=== PATIENT | female | born 1995 | race African-American/Black ===

== ENCOUNTER 2016-04-13 15:08 | Emergency (ER) | payer OTHER, MEDICAID ==
[~2016-04-13] VITALS: Ht 154.9 cm; Wt 60.0 kg
[2016-04-13 15:10] VITALS: BP 127/64; PULSE 74; RESP 15; TEMP 98.1; O2SAT 99
--- NOTE | 2016-04-13 17:06 | PD ---
HPI Chief Complaint: Cold / Flu Symptoms Time Seen by Provider: 17:05 Travel History International Travel<30 days: No Contact w/Intl Traveler<30days: No Traveled to known affect area: No History of Present Illness HPI 20-year-old female presents to ED for evaluation of 10 day history of these, sinus congestion, clear rhinorrhea, sore throat, nonproductive cough. Patient states first symptom was malaise and sore throat. She endorses subjective fevers, has not measured a temperature at home. She endorses sick contacts, states that her roommate has had similar symptoms. She denies this years flu vaccine. Denies risk of , endorses daily oral contraception. She denies chronic health problems, takes no daily medications. NKDA. PFSH Past Medical History ?: Unknown LMP: FEB 10 2017 Social History Tobacco Use: No Allergies-Medications (Allergen,Severity, Reaction): Coded Allergies: No Known Allergies (Unverified , 04/13/16) Reported Meds & Prescriptions Reported Meds & Active Scripts Active Fluticasone Nasal [place] 50 Mcg/Act Naspr 100 Mcg EACH NARE DAILY 15 Days 50 mcg/spray Tessalon Perles (Benzonatate) 100 Mg Cap 100 Mg PO TID PRN Review of Systems Except as stated in HPI: all other systems reviewed are Neg Physical Exam Narrative GENERAL: Well-nourished, well-developed black female in no acute distress. SKIN: Warm and dry. HEAD: Normocephalic. Atraumatic. EYES: No scleral icterus. No injection or drainage. PERRLA. EOMI. ENT: Pearly ordonez tympanic membranes bilaterally. Nasal mucosa is moist. Oropharynx with mild posterior erythema. No edema or exudates. Airway patent. Uvula midline. NECK: Supple, trachea midline. No JVD or lymphadenopathy. CARDIOVASCULAR: Regular rate and rhythm without murmurs, gallops, or rubs. 2+ DP and radial pulses bilaterally. RESPIRATORY: Breath sounds clear and equal bilaterally. No accessory muscle use. GASTROINTESTINAL: Abdomen soft, non-tender, nondistended. + Bowel sounds MUSCULOSKELETAL: No cyanosis, or edema. The patient is observed to walk with a normal gait. BACK: Nontender without obvious deformity. No CVA tenderness. Data Data Last Documented VS Vital Signs Date Time Temp Pulse Resp B/P Pulse Ox O2 Delivery O2 Flow Rate FiO2 04/13/16 19:05 98.9 88 16 121/63 98 Orders Electrocardiogram (04/13/16 ) Group A Rapid Strep Screen (04/13/16 17:27) Influenzae A/B Antigen (04/13/16 17:27) Chest, Single Ap (04/13/16 ) Strep Culture (Group A) (04/13/16 18:00) MDM Medical Decision Making Medical Screen Exam Complete: Yes Emergency Medical Condition: Yes Interpretation(s) EKG rate 65, sinus rhythm. NC interval 135 ms, QRS 83, QTC 372. Normal axis. No ischemic changes. Reviewed by Dr. Hernandez. Differential Diagnosis Viral syndrome versus influenza versus group A strep versus sinusitis versus other Narrative Course 20-year-old female presents to ED for evaluation of 10 day history of these, sinus congestion, clear rhinorrhea, sore throat, nonproductive cough. Patient states first symptom was malaise and sore throat. She endorses subjective fevers, has not measured a temperature at home. She endorses sick contacts, states that her roommate has had similar symptoms. She denies this years flu vaccine. Vitals reviewed. Physical exam reveals a nontoxic appearing black female in no acute distress. Mild posterior oropharyngeal area edema. Physical exam otherwise unremarkable. Rapid strep swab: Negative EKG: As above CXR: No acute disease per radiology read. Influenza A: Positive The patient is positive for influenza A. However does have been written for approximately 10 days. Tamiflu is not indicated. We'll treat symptomatically. Patient was prescribed Tessalon Perles 12 for persistent cough, fluticasone nasal spray 100 mg each nostril daily. We discussed reasons to return to the ED. Patient is instructed to take medication as prescribed, follow up with primary care provider. She indicated understanding of instructions. She is stable and discharged home. Diagnosis Primary Impression: Influenza A Additional Impression: Cough Referrals: Primary Care Physician Patient Instructions: General Instructions, Influenza (ED) Additional Instructions: Rest, hydrate. You have influenza A.Unable to be prescribed Tamiflu because symptoms have been present for greater than 48 hours. Ibuprofen as described on the label, as needed for body aches and fever. Tessalon Perles as needed for cough. Fluticasone nasal spray 2 puffs in each nostril daily to reduce nasal inflammation. This can also help to reduce cough by reducing nasal secretions and postnasal drip. Follow-up the primary care provider in a week. Return to the ED for any urgent or emergent medical condition. Med/Other Pt SpecificInfo: Prescription(s) given Scripts Fluticasone Nasal [place] 50 Mcg/Act [id number] Mcg EACH NARE DAILY 15 Days Ref 0 50 mcg/spray Prov:Nicholas Lerner MD 04/13/16 Benzonatate (Tessalon Perles)100 Mg [id number] Mg PO TID PRN (COUGH) #12 CAP Ref 0 Prov:Nicholas Lerner MD 04/13/16 Disposition: 01 DISCHARGE HOME Condition: Stable Sameera Alvarenga Apr 13, 2016 17:06
--- NOTE | 2016-04-13 18:44 | RADRPT ---
EXAM DATE/TIME: 04/13/2016 17:51 [facility] COMPARISON: No previous studies available for comparison. INDICATIONS : Cough, chest congestion for 3 days MEDICAL HISTORY : None. SURGICAL HISTORY : None. ENCOUNTER: Initial ACUITY: 3 days PAIN SCORE: 0/10 LOCATION: Bilateral chest FINDINGS: A single view of the chest demonstrates the lungs to be symmetrically aerated without evidence of mas s, infiltrate or effusion. The cardiomediastinal contours are unremarkable. Osseous structures are intact. CONCLUSION: No acute disease. Jairon Victor MD on April 13, 2016 at 18:42 Board Certified Radiologist. This report was verified electronically.
[2016-04-13] MEDS ORDERED: BENZ100 PO (18:58)
[2016-04-13] MEDS ORDERED: FLUT50SP EACH NARE (18:58)
[2016-04-13 19:05] VITALS: BP 121/63; TEMP 98.9
--- NOTE | 2016-04-14 16:06 | EKG ---
Date Performed: 04/13/2016 Time Performed: 16:06:20 PTAGE: 20 years EKG: Sinus rhythm WITH SINUS ARRHYTHMIA NORMAL ECG NO PREVIOUS TRACING DOCTOR: Bashir Miller Interpretating Date/Time 04/14/2016 16:05:48
== END 2016-04-13 19:09 | disposition home or self-care (01) ==
LOC: NEPB 15:08
DX: J09.X9 Influenza due to identified novel influenza A virus with other manifestations (principal)
CPT/HCPCS: 71010; 87081; 87804; 87880; 93005

== ENCOUNTER 2016-05-20 23:04 | Emergency (ER) | payer MEDICAID, OTHER ==
[~2016-05-20] VITALS: Ht 167.6 cm; Wt 60.0 kg
[~2016-05-20 23:04] MED LIST: BENZ100 PO; FLUT50SP EACH NARE
--- NOTE | 2016-05-20 23:24 | PD ---
HPI Chief Complaint: psychiatric evaluation Time Seen by Provider: 23:21 Travel History International Travel<30 days: No Contact w/Intl Traveler<30days: No History of Present Illness HPI Patient comes under Ramirez act by police for allegedly sending e-mail to her employer 3 days ago stating she was contemplating suicide. Patient states she has had suicidal thoughts ever since she was 9 years old. Patient reports she has tried hurting herself in the past most recently within the last year patient states that she tried to hang herself from a shower curtain edson however her boyfriend stopped her. Patient states that earlier this week she was vomiting, but has since resolved. Patient denies any other medical concerns at this time. Denies any chest pain, shortness of breath, abdominal pain, fevers, or chest pain. PFSH Past Medical History Medical History: Denies Significant Hx Social History Tobacco Use: No Allergies-Medications (Allergen,Severity, Reaction): Coded Allergies: No Known Allergies (Unverified , 05/20/16) Reported Meds & Prescriptions Reported Meds & Active Scripts Active Fluticasone Nasal [place] 50 Mcg/Act Naspr 100 Mcg EACH NARE DAILY 15 Days 50 mcg/spray Tessalon Perles (Benzonatate) 100 Mg Cap 100 Mg PO TID PRN Review of Systems Except as stated in HPI: all other systems reviewed are Neg Physical Exam Narrative GENERAL: Well-developed, well nourished, in no acute distress, and non-ill appearing. SKIN: Warm and dry. HEAD: Atraumatic. Normocephalic. EYES: Pupils equal and round. EOMI. No scleral icterus. No injection or drainage. ENT: No nasal bleeding or discharge. Mucous membranes pink and moist. NECK: Trachea midline. Supple. No nuclear rigidity. CARDIOVASCULAR: Regular rate and rhythm. No murmur appreciated. RESPIRATORY: No accessory muscle use. No respiratory distress. Clear to auscultation. Breath sounds equal bilaterally. MUSCULOSKELETAL: No obvious deformities. No clubbing. No cyanosis. No edema. Full range of motion. NEUROLOGICAL: Awake and alert. No obvious cranial nerve deficits. Motor grossly within normal limits. Normal speech. PSYCHIATRIC: Appropriate mood and affect; insight and judgment normal. Data Data Last Documented VS Vital Signs Date Time Temp Pulse Resp B/P Pulse Ox O2 Delivery O2 Flow Rate FiO2 05/20/16 23:44 91 05/20/16 23:43 20 118/63 100 05/20/16 23:37 98.8 Orders Complete Blood Count With Diff (05/20/16 23:08) Comprehensive Metabolic Panel (05/20/16 23:08) Ed Urine Pregnancytest Poc (05/20/16 23:08) Psych Screen (05/20/16 23:08) Drug Screen, Random Urine (05/20/16 23:08) Alcohol (Ethanol) (05/20/16 23:08) Salicylates (Aspirin) (05/20/16 23:08) Tylenol (Acetaminophen) (05/20/16 23:08) Labs Laboratory Tests Test 05/20/16 05/20/16 23:15 23:30 White Blood Count 9.2 TH/MM3 Red Blood Count 3.83 MIL/MM3 Hemoglobin 12.1 GM/DL Hematocrit 34.9 % Mean Corpuscular Volume 91.2 FL Mean Corpuscular Hemoglobin 31.5 PG Mean Corpuscular Hemoglobin 34.6 % Concent Red Cell Distribution Width 12.5 % Platelet Count 242 TH/MM3 Mean Platelet Volume 9.6 FL Neutrophils (%) (Auto) 67.2 % Lymphocytes (%) (Auto) 23.1 % Monocytes (%) (Auto) 8.7 % Eosinophils (%) (Auto) 0.6 % Basophils (%) (Auto) 0.4 % Neutrophils # (Auto) 6.2 TH/MM3 Lymphocytes # (Auto) 2.1 TH/MM3 Monocytes # (Auto) 0.8 TH/MM3 Eosinophils # (Auto) 0.1 TH/MM3 Basophils # (Auto) 0.0 TH/MM3 CBC Comment DIFF FINAL Differential Comment Sodium Level 140 MEQ/L Potassium Level 4.2 MEQ/L Chloride Level 104 MEQ/L Carbon Dioxide Level 26.7 MEQ/L Anion Gap 9 MEQ/L Blood Urea Nitrogen 12 MG/DL Creatinine 0.91 MG/DL Estimat Glomerular Filtration 96 ML/MIN Rate Random Glucose 96 MG/DL Calcium Level 8.8 MG/DL Total Bilirubin LESS THAN 0.1 MG/DL Aspartate Amino Transf 14 U/L (AST/SGOT) Alanine Aminotransferase 17 U/L (ALT/SGPT) Alkaline Phosphatase 73 U/L Total Protein 7.3 GM/DL Albumin 3.5 GM/DL Salicylates Level LESS THAN 1.7 MG/DL Acetaminophen Level LESS THAN 2.0 MCG/ML Ethyl Alcohol Level LESS THAN 3 MG/DL Urine Opiates Screen NEG Urine Barbiturates Screen NEG Urine Amphetamines Screen NEG Urine Benzodiazepines Screen NEG Urine Cocaine Screen NEG Urine Cannabinoids Screen POS MDM Medical Decision Making Medical Screen Exam Complete: Yes Emergency Medical Condition: Yes Differential Diagnosis Homicidal, suicidal, electrolyte abnormality, depression, other Narrative Course Patient was seen and examined. Labs were obtained and reviewed. Patient medically cleared for further treatment and evaluation by psych. Final disposition per psych. Diagnosis Primary Impression: Suicidal thoughts Condition: Stable Jayesh Venegas May 20, 2016 23:24
[2016-05-20 23:37] VITALS: BP 118/63; PULSE 91; RESP 20; TEMP 98.8; O2SAT 100
[2016-05-20 23:38] LABS: AUTOMATED NEUTROPHIL # 6.2 TH/MM3 (1.8-7.7); BASOPHIL % 0.4 % (0.0-2.0); EOSINOPHIL # 0.1 TH/MM3 (0-0.4); EOSINOPHIL % 0.6 % (0.0-4.0); HEMATOCRIT 34.9 % (35.0-46.0); HEMO FLAGS DIFF FINAL; LYMPH % 23.1 % (9.0-44.0); LYMPHOCYTE # 2.1 TH/MM3 (1.0-4.8); MEAN CELL VOLUME 91.2 FL (80.0-100.0); MEAN CORPUSCULAR HEMOGLOBIN 31.5 PG (27.0-34.0); MEAN CORPUSCULAR HGB CONC 34.6 % (32.0-36.0); MONO % 8.7 % (0.0-8.0); NEUT % 67.2 % (16.0-70.0); PLATELET COUNT 242 TH/MM3 (150-450); RED BLOOD COUNT 3.83 MIL/MM3 (4.00-5.30); RED CELL DISTRIBUTION WIDTH 12.5 % (11.6-17.2); WHITE BLOOD COUNT 9.2 TH/MM3 (4.0-11.0)
[2016-05-20 23:43] VITALS: BP 118/63; PULSE 91; RESP 20; O2SAT 100
[2016-05-20 23:48] LABS: AMPHETAMINE, URINE NEG (NEG); BARBITURATES, URINE NEG (NEG); COCAINE, URINE NEG (NEG)
[2016-05-20 23:52] LABS: ANION GAP 9 MEQ/L (5-15)
[2016-05-20 23:55] LABS: ALKALINE PHOSPHATASE 73 U/L (45-117); ALT (GPT) 17 U/L (9-42); AST (GOT) 14 U/L (16-38); BICARBONATE 26.7 MEQ/L (21.0-32.0); BLOOD UREA NITROGEN 12 MG/DL (7-18); CHLORIDE 104 MEQ/L (98-107); GLOMERULAR FILTRATION RATE 96 ML/MIN (>89); POTASSIUM 4.2 MEQ/L (3.5-5.1); SODIUM (NA) 140 MEQ/L (136-145); TOTAL BILIRUBIN ADULT LESS THAN 0.1 MG/DL (0.2-1.0)
[2016-05-20 23:56] LABS: ACETAMINOPHEN LESS THAN 2.0 MCG/ML (10.0-30.0)
[2016-05-21] MEDS ORDERED: NORE1TAB80 PO (02:00)
[2016-05-21 02:32] VITALS: BP 96/53; PULSE 70; RESP 18; TEMP 97.5; O2SAT 99
[2016-05-21 06:45] VITALS: BP 100/55; PULSE 67; RESP 18; TEMP 97.4; O2SAT 100
--- NOTE | 2016-05-21 11:20 | PD ---
History of Present Illness Chief Complaint: Psychiatric Symptoms Time Seen by Provider: 11:00 Travel History International Travel<30 Days: No Contact w/Intl Traveler<30days: No Known affected area: No Legal Status Legal Status: Ramirez Act Ramirez Act Signed By: Winnie Henry History of Present Illness: History of Present Illness HPI Patient is a 20 year old female with no previous psychiatric history who comes under Ramirez act by police for allegedly sending e-mail to her employer 3 days ago stating she was contemplating suicide. As per the report the patient sent the message at 10:30 in the morning and then " forgot about it". She reports that she was surprised when the police picked her up at 11:00 pm. and states " I was having a perfectly fine day". EMR is reviewed. There are no previous contacts with [facility] psychiatry department. Current toxicology is positive for cannabinoids. Patient is seen in J pod. She is alert and oriented. She has presented no behavioral concerns. She presents with childlike behaviors. Her speech is very soft. It is clear and logical. There is no evidence of any psychosis and no greg. Mood is mildly depressed. No vegetative symptoms. She reports that she has experienced some losses recently which have contributed to her feeling sad. At this time she does not endorse any suicidal ideation, intent or plan. PFSH Past Medical History Medical History: Denies Significant Hx Tetanus Vaccination: < 5 Years Influenza Vaccination: No ?: Not Psychiatric History Psychiatric History Hx Psychiatric Treatment: DENIED FORMAL DX Alleges that at age 9 she attempted sucide after her parents . History of Inpatient Treatment: No Guns or firearms in home: No Social History Single fe male . Lives with roommates. Attends [employer] and is studying political science. Hx Alcohol Use: No Hx Tobacco Use: No Hx Substance Use: Yes (DENIED) Substance Use Type: Marijuana Hx of Substance Use Treatment: No Family Psychiatric History None reported Allergies-Medications (Allergen,Severity, Reaction): Coded Allergies: No Known Allergies (Unverified , 05/20/16) Reported Meds & Prescriptions Reported Meds & Active Scripts Active Reported Blisovi Fe 1.530 (Norethindrone-Ethinyl Estradiol-Fe) 1.5-30 Mg-Mcg Tab 1 Tab PO DAILY Review of Systems Except as stated in HPI: all other systems reviewed are Neg Exam Alert: Yes [place]: Person (ox4) Mood: Calm Affect: Euthymic Speech: Clear, Logical Eye Contact: Normal Memory Intact: Comment (no impairmetn) Hallucinations: Other (neagtive) Delusions: No Suicidal: Ideation (deneis any) Homicidal: Ideation (deneis any) Insight/Judgement Fair. Not impaired MDM Medical Decision Making Medical Record Reviewed: Yes Assessment/Plan 20 year old female under a BA for having sent a letter to her employer in which she reported that she had experienced suicidal ideation 2 days prior to sending the letter. She made no attempt at harming herself. At this time she does not present any iminent risk to self or others. She is future oriented. She is provided support. She will seek counseling at her college counseling services. Orders Complete Blood Count With Diff (05/20/16 23:08) Comprehensive Metabolic Panel (05/20/16 23:08) Ed Urine Pregnancytest Poc (05/20/16 23:08) Psych Screen (05/20/16 23:08) Drug Screen, Random Urine (05/20/16 23:08) Alcohol (Ethanol) (05/20/16 23:08) Salicylates (Aspirin) (05/20/16 23:08) Tylenol (Acetaminophen) (05/20/16 23:08) Diet Regular Basic (05/21/16 Breakfast) Results Vital Signs Date Time Temp Pulse Resp B/P Pulse Ox O2 Delivery O2 Flow Rate FiO2 05/21/16 06:45 97.4 67 18 100/55 100 Room Air 05/21/16 02:32 97.5 70 18 96/53 99 Room Air 05/20/16 23:44 91 05/20/16 23:43 91 20 118/63 100 05/20/16 23:37 98.8 91 20 118/63 100 Laboratory Tests Test 05/20/16 05/20/16 23:15 23:30 White Blood Count 9.2 Red Blood Count 3.83 Hemoglobin 12.1 Hematocrit 34.9 Mean Corpuscular Volume 91.2 Mean Corpuscular Hemoglobin 31.5 Mean Corpuscular Hemoglobin 34.6 Concent Red Cell Distribution Width 12.5 Platelet Count 242 Mean Platelet Volume 9.6 Neutrophils (%) (Auto) 67.2 Lymphocytes (%) (Auto) 23.1 Monocytes (%) (Auto) 8.7 Eosinophils (%) (Auto) 0.6 Basophils (%) (Auto) 0.4 Neutrophils # (Auto) 6.2 Lymphocytes # (Auto) 2.1 Monocytes # (Auto) 0.8 Eosinophils # (Auto) 0.1 Basophils # (Auto) 0.0 CBC Comment DIFF FINAL Differential Comment Sodium Level 140 Potassium Level 4.2 Chloride Level 104 Carbon Dioxide Level 26.7 Anion Gap 9 Blood Urea Nitrogen 12 Creatinine 0.91 Estimat Glomerular Filtration 96 Rate Random Glucose 96 Calcium Level 8.8 Total Bilirubin LESS THAN 0.1 Aspartate Amino Transf 14 (AST/SGOT) Alanine Aminotransferase 17 (ALT/SGPT) Alkaline Phosphatase 73 Total Protein 7.3 Albumin 3.5 Salicylates Level LESS THAN 1.7 Acetaminophen Level LESS THAN 2.0 Ethyl Alcohol Level LESS THAN 3 Urine Opiates Screen NEG Urine Barbiturates Screen NEG Urine Amphetamines Screen NEG Urine Benzodiazepines Screen NEG Urine Cocaine Screen NEG Urine Cannabinoids Screen POS Diagnosis Primary Impression: Adjustment disorder Ruled Out: Suicidal thoughts Psychiatrically Cleared: Yes Med/ Other Pt Specific Info: No Meds Exist/No RX given Disposition: 01 DISCHARGE HOME Condition: Stable Problem Qualifiers Primary Impression: Adjustment disorder Qualified Code: F43.21 - Adjustment disorder with depressed mood Anita Johnston May 21, 2016 11:19
[2016-05-21 11:41] VITALS: BP 108/58; PULSE 76; RESP 16; O2SAT 97
== END 2016-05-21 13:15 | disposition home or self-care (01) ==
LOC: NEDAMB 23:04 → NEPJ 05-21 13:15
DX: R45.851 Suicidal ideations (principal); F43.21 Adjustment disorder with depressed mood; F12.90 Cannabis use, unspecified, uncomplicated
CPT/HCPCS: 80053; 80307; 84703; 85025; 99284

== ENCOUNTER 2017-04-12 15:32 | Emergency (ER) | payer MEDICAID ==
[~2017-04-12] VITALS: Ht 152.4 cm; Wt 60.0 kg
[~2017-04-12 15:32] MED LIST changes: -BENZ100 PO; -FLUT50SP EACH NARE; +NORE1TAB80 PO
[2017-04-12 15:35] VITALS: BP 120/65; PULSE 85; RESP 14; TEMP 98.5; O2SAT 100
--- NOTE | 2017-04-12 16:14 | RADRPT ---
EXAM DATE/TIME: 04/12/2017 15:58 [facility] COMPARISON: No previous studies available for comparison. INDICATIONS : Patients states she stepped on something today, unknown object, that went through her shoe near later al side of 5th MTPJ. Patient states there is still a foreign body in toe. Evaluate for foreign body. MEDICAL HISTORY : None. SURGICAL HISTORY : None. ENCOUNTER: Initial ACUITY: 1 day PAIN SCORE: 9/10 LOCATION: Right Foot FINDINGS: Three view examination of the right foot demonstrates no dislocation, or fracture. The tarsal bones appear intact. The interphalangeal and metatarsophalangeal joints are intact. The calcaneus is int act. Bony mineralization is normal. There is a very subtle linear increased density noted along the lateral aspect of the proximal fifth phalanx. CONCLUSION: 1. Very subtle linear increased density noted in the lateral soft tissues of the proximal fifth toe. A non-radiopaque foreign body (wood) cannot be entirely excluded. Clinical correlation is recommended regarding overlying bandage or other material in this region. Repeat radiographs may be reobtained w ith removal of all bandaging and other material in this region if overlying material is suspected. Soto Meadows MD on April 12, 2017 at 16:08 Board Certified Radiologist. This report was verified electronically.
--- NOTE | 2017-04-12 16:57 | PD ---
HPI Chief Complaint: Injury Time Seen by Provider: 16:56 Travel History International Travel<30 days: No Contact w/Intl Traveler<30days: No Traveled to known affect area: No History of Present Illness HPI 21-year-old -Citizen Of [place] female presents emergency department with foreign body to the right lateral distal foot. Patient states she was walking into a restaurant with her friend when her foot hit a branch that was on the ground and a piece of wood went through her shoe and sock into her foot along the distal lateral aspect of the right foot the shoe was removed, and sock was cut down as much as possible prior to arrival. There is no bleeding. Patient is unsure of her last tetanus shot. Pain is 9 out of 10. She has no other injury. She has no known drug allergies. [facility] Past Medical History Medical History: Denies Significant Hx Tetanus Vaccination: Unknown Influenza Vaccination: No ?: Not LMP: 04/09/17 Past Surgical History Surgical History: No Previous Surgery Social History Alcohol Use: No Tobacco Use: No Substance Use: Yes Allergies-Medications (Allergen,Severity, Reaction): Coded Allergies: No Known Allergies (Unverified Adverse Reaction, Unknown, 04/12/17) Reported Meds & Prescriptions Reported Meds & Active Scripts Active Reported Blisovi Fe 1.5/30 (Norethindrone-Ethinyl Estradiol-Fe) 1.5-30 Mg-Mcg Tab 1 Tab PO DAILY Review of Systems Except as stated in HPI: all other systems reviewed are Neg General / Constitutional: No: Fever Eyes: No: Visual changes HENT: No: Headaches Cardiovascular: No: Chest Pain or Discomfort Respiratory: No: Shortness of Breath Gastrointestinal: No: Abdominal Pain Genitourinary: No: Dysuria Musculoskeletal: No: Pain Skin: No Rash Neurologic: No: Weakness Psychiatric: No: Depression Endocrine: No: Polydipsia Hematologic/Lymphatic: No: Easy Bruising Physical Exam Narrative GENERAL: Patient is in moderate distress SKIN: Warm and dry. Normal color. Normal turgor. Patient has obvious puncture wound with foreign body to the right distal lateral foot without local erythema. HEAD: Atraumatic. Normocephalic. EYES: Pupils equal and round. No scleral icterus. No injection or drainage. ENT: No nasal bleeding or discharge. Mucous membranes pink and moist. Pharynx is clear. Airways patent NECK: Trachea midline. Supple CARDIOVASCULAR: Regular rate and rhythm. RESPIRATORY: No accessory muscle use. Clear to auscultation. Breath sounds equal bilaterally. MUSCULOSKELETAL: Extremities without clubbing, cyanosis, or edema. No obvious deformities. Range of motion is limited secondary to discomfort NEUROLOGICAL: Awake and alert. No obvious cranial nerve deficits. Motor grossly within normal limits. Five out of 5 muscle strength in the arms and legs. Normal speech. PSYCHIATRIC: Appropriate mood and affect; insight and judgment normal. Data Data Last Documented VS Vital Signs Date Time Temp Pulse Resp B/P (MAP) Pulse Ox O2 Delivery O2 Flow Rate FiO2 04/12/17 15:35 98.5 85 14 120/65 (83) 100 Room Air Orders Orders Foot, Complete ([id number]) (04/12/17 ) Amoxicil-Clavulanate (Augmentin) (04/12/17 17:30) MDM Medical Decision Making Medical Screen Exam Complete: Yes Emergency Medical Condition: Yes Differential Diagnosis Foreign body. Need for tetanus. Puncture wound. Foreign body removal. Narrative Course Patient is medically stable time of exam. X-ray of the right shows foreign body in the soft tissues per radiologist Foreign body removed without difficulty. Dressings placed. Wound instructions are given Patient is given Augmentin 875 p.o. now Patient continued on Augmentin 875 mg twice daily 5 days. Patient should soak the area in warm soapy water twice daily and keep covered with a bandage Tetanus is given IM. Patient to follow-up if symptoms of cellulitis develop as discussed Procedures Procedure Narrative After the risks and benefits were discussed the following procedure was performed: INCISION AND DRAINAGE OF ABSCESS: The area was prepped and was sterilely draped. A subcutaneous wheal of 2 % Xylocaine with epi with a total number 2.5 mL was used to anesthetize the area. The area was properly anesthetized. Foreign body was grasped with a forcep and pulled out without difficulty, with whole thorn removed. Sterile dressing applied. Wound care as discussed Diagnosis Primary Impression: Hx of retained foreign body fully removed Referrals: Primary Care Physician Patient Instructions: General Instructions, Puncture Wound (ED), Soft Tissue Foreign Body (ED) Additional Instructions: X-ray of the right shows foreign body in the soft tissues per radiologist Foreign body removed without difficulty. Dressings placed. Wound instructions are given Patient is given Augmentin 875 p.o. now Patient continued on Augmentin 875 mg twice daily 5 days. Patient should soak the area in warm soapy water twice daily and keep covered with a bandage Tetanus is given IM. Patient to follow-up if symptoms of cellulitis develop as discussed Med/Other Pt SpecificInfo: Prescription(s) given Disposition: 01 DISCHARGE HOME Condition: Stable Oscar Shepard Apr 12, 2017 16:57
[2017-04-12] MEDS ORDERED: TETANUS/DIPHTHERIA TOXOID ADULT 0.5 ML VIAL IM ONE (17:30)
[2017-04-12] MEDS ORDERED: AMOXICILLIN/CLAVULANATE K 875 MG TAB PO ONE (17:30)
[2017-04-12] MEDS ORDERED: AUGM875T3 PO (17:35)
== END 2017-04-12 17:43 | disposition home or self-care (01) ==
LOC: NEPD 15:32
DX: S91.341A Puncture wound with foreign body, right foot, initial encounter (principal); W45.8XXA Other foreign body or object entering through skin, initial encounter; W22.09XA Striking against other stationary object, initial encounter; Y92.511 Restaurant or cafe as the place of occurrence of the external cause; Z23 Encounter for immunization
CPT/HCPCS: 28190; 64450; 73630; 90471; 90714